=== PATIENT | male | born 1955 | race Caucasian/White ===

== ENCOUNTER → 2016-05-21 | Day surgery (SDC) | payer BC ==
[2016-05-19 10:28] VITALS: Ht 190.5 cm; Wt 94.4 kg
--- NOTE | 2016-05-19 11:05 | PAT Medication Instructions ---
Service Date May 19, 2016. Current Home Medication List Albuterol Sulfate (Proair Respiclick), 1-2 PUFFS INH Q4-6H Bupropion (Wellbutrin), 100 MG PO QAM Buspirone Hcl (Buspar), 15 MG PO BID Cyclosporine (Ophth) (Restasis), 1 DROP OP BID Simvastatin (Zocor), 10 MG PO QPM Trazodone Hcl (Trazodone), 100 MG PO HS Medication Instructions For Your Scheduled Surgery - Take the following medications the morning of surgery with a sip of water: Buspirone Hcl (Buspar), 15 MG PO BID Bupropion (Wellbutrin), 100 MG PO QAM Cyclosporine (Ophth) (Restasis), 1 DROP OP BID Albuterol Sulfate (Proair Respiclick), 1-2 PUFFS INH Q4-6H (bring with you to hospital morning of surgery) - Take the following medications as scheduled the night before surgery: Simvastatin (Zocor), 10 MG PO QPM Trazodone Hcl (Trazodone), 100 MG PO HS Buspirone Hcl (Buspar), 15 MG PO BID Cyclosporine (Ophth) (Restasis), 1 DROP OP BID If you have any questions please call us at [phone] (Le Child PA-C) or [phone] or [phone]
[2016-05-19 11:59] LABS: BASO % 0.3 %; BASO ABS # 0.02 K/uL (0-0.2); COMPLETE YES; EOS % 1.7 %; HEMATOCRIT 40.8 % (42-52); IG% 0.2 %; LYMPH ABS # 1.43 K/uL (1.2-3.4); MEAN CELL VOLUME 96.5 fL (80-100); MEAN CORPUSCULAR HEMOGLOBIN 32.2 pg (25-34); MEAN CORPUSCULAR HGB CONC 33.3 g/dl (32-36); MONO % 8.2 %; NEUT % 64.6 %; PLATELET COUNT 236 K/uL (130-400); RED BLOOD COUNT 4.23 M/uL (4.7-6.1); WHITE BLOOD COUNT 5.73 K/uL (4.8-10.8)
[2016-05-19 12:30] LABS: BUN/CREATININE RATIO 11.3 (10-20); CALCIUM 9.1 mg/dl (8.5-10.1); CREATININE 0.99 mg/dl (0.60-1.40); POTASSIUM 4.3 mmol/L (3.5-5.1)
[~2016-05-21] VITALS: Ht 190.5 cm; Wt 94.4 kg
[~2016-05-21] MED LIST: 500ML BSS 0.3ML EPI 1:1000PF IRRIG ONE; ACETAMINOPHEN 325 MG TAB PO PRN; ALBU18002 INH; AMVISC PLUS 0.8ML SYRINGE INT OCU ONE; ATROPINE SULFATE 0.1 MG/ML 5ML SYR IV PRN; BSS FLUSH ONE; BUPR-83 PO; BUSP15TA70 PO; CYCL0.052 OP; DEXAMETHASONE SOD INJ 4 MG/ML VIAL ONE; ENDOCOAT 0.85ML SYRINGE INT OCU ONE; EpHEDrine SULFATE INJ 50 MG/ML AMP IV PRN; EpINEphrine INJ 1MG/ML AMP 1 MG/ML AMP ONE; LACTATED RINGER'S 1000ML 500 ML IV SCH; LIDOCAINE 4% OP SOLN DROP CHARGE ONE; LIDOCAINE 4% OP SOLN DROP CHARGE OPR SCH; LIDOCAINE HCL 1% MPF 2 ML VIAL ONE; LIDOCAINE HCL 2% 2 ML VIAL (20MG/ML) ONE; MIDAZOLAM HCL 1 MG/ML 2ML VIAL ONE; MIX: 4ML BSS 1ML EPI 1:1000 PF INSTIL ONE; MOXIFLOXACIN OPH SOLN PER DROP CHARGE ONE; ONDANSETRON INJ 2 MG/ML 2 ML VIAL ONE; PATIENT'S ALLERGY INFO NEEDS ENTERED SCH; POVIDONE-IODINE OP SOLN 30 ML BTL ONE; PRED1SUS3 OPR; PROPARACAINE 0.5% OP SOLN PER DROP CHARGE OPR SCH; PROPOFOL IV EMULSION 10 MG/ML 20 ML VIAL IV ONE; SIMV10TA2 PO; TOBRAMYCIN/DEXAMETHASONE OPH OINT PER APPLN CHARGE ONE; TRAZ100T29 PO
[2016-05-21] MEDS: PHENYLEPHRINE HCL 2.5% OP SOLN PER DROP CHARGE OPR SCH ×3 (09:40→09:50)
[2016-05-21] MEDS: TROPICAMIDE 1% OP SOLN PER DROP CHARGE OPR SCH ×3 (09:41→09:51)
[2016-05-21] MEDS: CYCLOPENTOLATE HCL 1% OP SOLN PER DROP CHARGE OPR SCH ×3 (09:42→09:52)
[2016-05-21] MEDS: MOXIFLOXACIN OPH SOLN PER DROP CHARGE OPR SCH ×3 (09:43→09:53)
--- NOTE | 2016-05-21 10:10 | History & Physical Bridge - SC ---
H&P Re-Evaluation Bridge Note: I have examined the patient, reviewed the History & Physical and in the interval since the performance of the History & Physical I have noted the following changes of clinical significance: No changes noted
--- NOTE | 2016-05-21 11:29 | [facility] Post Operative Brief Note ---
Immediate Operative Summary Operative Date May 21, 2016. Pre-Operative Diagnosis Cataract Right Eye Post-Operative Diagnosis Same Procedure(s) Performed Right Cataract Phacoemulsification With Intraocular Lens Implant Surgeon Dr. Herrera Pusher Runner Surgeon(s) None Estimated Blood Loss 0 mL Findings right cataract Specimens None Complication(s) None Disposition
--- NOTE | 2016-05-21 11:31 | [facility] Operative Report ---
Operative Report Phaco with monofocal IOL DATE OF OPERATION: 05/21/16 PREOPERATIVE DIAGNOSIS: Senile nuclear cataract, right eye POSTOPERATIVE DIAGNOSIS: Senile nuclear cataract, right eye PROCEDURE PERFORMED: Phacoemulsification with intraocular lens implantation, right eye SURGEON: Dr. Jeremy Herrera ANESTHESIA: Laryngeal mask airway COMPLICATIONS: None DESCRIPTION OF PROCEDURE: After positively identifying the patient both verbally and by wristband in the preoperative area, the right eye was marked as the operative eye. The patient was then brought back to the operating room by the anesthesia and nursing staff where they were given a drop of Lidocaine and betadine into the operative eye. They were then sterilely prepped and draped in the standard fashion typical for ophthalmic surgery. Steri-strips were placed along the upper eyelids to keep the lashes back, and a lid speculum was placed into the operative eye. At this point, a documented time out was performed with members of the ophthalmology, nursing, and anesthesia staffs all agreeing upon the correct patient, correct location for surgery, correct procedure, and correct type and power of intraocular lens to be implanted. The microscope was then swung into position. First, a paracentesis wound was made using a sideport blade. Then, in sequence, 1% preservative-free lidocaine followed by Endocoat viscoelastic was injected into the anterior chamber. Next , the main incision was made with a keratome blade in triplanar fashion. A sharp cystotome was introduced into the eye and used to create a tear in the anterior capsule, which was directed into a continuous curvilinear capsulorrhexis using Utrata forceps. Hydrodissection was then performed with BSS on a flat-tip cannula. Next, the phacoemulsification handpiece was introduced into the eye and used to remove the nucleus in a [id number] fashion. This was done without complication and then the irrigation-aspiration handpiece was introduced into the eye and used to remove all remaining cortical and epinuclear material. Amvisc was then injected into the anterior chamber as well as into the capsular bag and using the lens injector system, an MX60 16.0 D lens, serial number [id number], and expiration date 10/2018 was injected into the capsular bag and rotated into the correct position. Next, the irrigation- aspiration handpiece was used to remove all remaining Amvisc. BSS was used to hydrate the main wound, and then BSS was injected into the paracentesis site to reach physiologic pressure and then the main wound was checked and found to be watertight. The patient was given drops of Vigamox and Tobradex ointment into the operative eye, and then the surrounding area was cleaned and dried. A clear plastic shield was placed over the eye and the patient was then sat up and taken from the operating room by the anesthesia staff having tolerated the procedure well and suffering no complications. DISPOSITION: The patient was returned to the recovery room in stable condition. I attest to the content of the Intraoperative Record and any orders documented therein. Any exceptions are noted below.
--- NOTE | 2016-05-21 11:32 | Discharge Instructions-SurgCtr ---
Discharge Instructions Visit Reason for Visit: Cataract Right Eye Discharge Discharge Diagnosis / Problem: right cataract Discharge Goals Goal(s): Decrease discomfort, Improve function Activity Recommendations Activity Limitations: as noted below Anesthesia . Post Anesthesia Instructions: If you have had General Anesthesia or IV Sedation: * Do not drive today. * Resume driving when surgeon permits. * Do not make important decisions or sign legal documents today. * Call surgeon for: 1. Temperature elevations greater than 101 degrees F. 2. Uncontrollable pain. 3. Excessive bleeding. 4. Persistent nausea and vomiting. 5. Medication intolerance (nausea, vomiting or rash). * For nausea and vomiting use only clear liquids such as: tea, soda, bouillon until nausea subsides, then gradually increase diet as tolerated. * If you have any concerns or questions, call your surgeon's office. If physician is unavailable and it is an emergency, call 911 or go to the nearest emergency room. . Instructions / Follow-Up Instructions / Follow-Up ACTIVITY RECOMMENDATIONS: * Light activities. * You may walk outside, read, watch television. * You may notice redness on the white part of the eye and some blurry vision - this is normal. MEDICATIONS: Resume previous medications unless instructed otherwise by your surgeon. Start all eye drops at 1:30 pm today: * Eye drops (today): Prednisone - one drop in operative eye every 2 hours while awake Ofloxacin - one drop in operative eye every 2 hours while awake SPECIAL CARE INSTRUCTIONS: * Tape plastic shield over eye to sleep at night. Call your doctor at with any concerns or problems. FOLLOW UP VISIT: Follow-up with Dr Herrera at [facility] as scheduled. Diet Recommendations Home Diet: no limitations Procedures Procedures Performed: Right Cataract Phacoemulsification With Intraocular Lens Implant Pending Studies Studies pending at discharge: no Medical Emergencies . Who to Call and When: Medical Emergencies: If at any time you feel your situation is an emergency, please call 911 immediately. . Non-Emergent Contact Non-Emergency issues call your: Surgeon . . "Provider Documentation" section prepared by Jeremy Herrera.
--- NOTE | 2016-05-21 11:57 | Anesthesia Progress Nt - [facility] ---
Anesthesia Post Op Note Date & Time May 21, 2016 at 11:57 Vital Signs Pain Intensity: 0 Vital Signs Past 12 Hours Date Time Temp Pulse Resp B/P Pulse Ox O2 Delivery O2 Flow Rate FiO2 05/21/16 11:39 36.0 53 14 128/92 100 Diffusion Mask 6 05/21/16 09:34 36.4 57 18 131/84 97 Room Air Notes Mental Status: alert / awake / arousable, participated in evaluation Pt Amnestic to Procedure: Yes Nausea / Vomiting: adequately controlled Pain: adequately controlled Airway Patency, RR, SpO2: stable & adequate BP & HR: stable & adequate Hydration State: stable & adequate Anesthetic Complications: no major complications apparent
[2016-05-21 12:13] VITALS: TEMP 36.4
[2016-05-21 12:27] VITALS: BP 136/90; PULSE 58; O2SAT 97
== END | disposition home or self-care (01) ==
LOC: X.SURG 09:16
PROVIDERS: ATTEND Ophthalmology
DX: H25.11 Age-related nuclear cataract, right eye (principal); H04.129 Dry eye syndrome of unspecified lacrimal gland; H25.049 Posterior subcapsular polar age-related cataract, unspecified eye; H02.13 Senile ectropion of eyelid; H01.009 Unspecified blepharitis unspecified eye, unspecified eyelid

== ENCOUNTER → 2016-05-30 | Outpatient (CLI) | payer BC ==
[~2016-05-30] MED LIST changes: -500ML BSS 0.3ML EPI 1:1000PF IRRIG ONE; -ACETAMINOPHEN 325 MG TAB PO PRN; -AMVISC PLUS 0.8ML SYRINGE INT OCU ONE; -ATROPINE SULFATE 0.1 MG/ML 5ML SYR IV PRN; -BSS FLUSH ONE; -DEXAMETHASONE SOD INJ 4 MG/ML VIAL ONE; -ENDOCOAT 0.85ML SYRINGE INT OCU ONE; -EpHEDrine SULFATE INJ 50 MG/ML AMP IV PRN; -EpINEphrine INJ 1MG/ML AMP 1 MG/ML AMP ONE; -LACTATED RINGER'S 1000ML 500 ML IV SCH; -LIDOCAINE 4% OP SOLN DROP CHARGE ONE; -LIDOCAINE 4% OP SOLN DROP CHARGE OPR SCH; -LIDOCAINE HCL 1% MPF 2 ML VIAL ONE; -LIDOCAINE HCL 2% 2 ML VIAL (20MG/ML) ONE; -MIDAZOLAM HCL 1 MG/ML 2ML VIAL ONE; -MIX: 4ML BSS 1ML EPI 1:1000 PF INSTIL ONE; -MOXIFLOXACIN OPH SOLN PER DROP CHARGE ONE; -ONDANSETRON INJ 2 MG/ML 2 ML VIAL ONE; -PATIENT'S ALLERGY INFO NEEDS ENTERED SCH; -POVIDONE-IODINE OP SOLN 30 ML BTL ONE; -PROPARACAINE 0.5% OP SOLN PER DROP CHARGE OPR SCH; -PROPOFOL IV EMULSION 10 MG/ML 20 ML VIAL IV ONE; -TOBRAMYCIN/DEXAMETHASONE OPH OINT PER APPLN CHARGE ONE
== END | disposition home or self-care (01) ==
LOC: C.LABSPEC 12:50
PROVIDERS: ATTEND Internal Medicine
DX: Z12.11 Encounter for screening for malignant neoplasm of colon (principal)

== ENCOUNTER → 2016-06-04 | Day surgery (SDC) | payer BC ==
[2016-06-02 07:45] VITALS: Ht 190.5 cm; Wt 88.6 kg
[~2016-06-04] VITALS: Ht 190.5 cm; Wt 88.6 kg
[~2016-06-04] MED LIST changes: +500ML BSS 0.3ML EPI 1:1000PF IRRIG ONE; +ACETAMINOPHEN 325 MG TAB PO PRN; +AMVISC PLUS 0.8ML SYRINGE INT OCU ONE; +ATROPINE SULFATE 0.1 MG/ML 5ML SYR IV PRN; +BSS FLUSH ONE; +ENDOCOAT 0.85ML SYRINGE INT OCU ONE; +EpHEDrine SULFATE INJ 50 MG/ML AMP IV PRN; +EpHEDrine SULFATE INJ 50 MG/ML AMP ONE; +EpINEphrine INJ 1MG/ML AMP 1 MG/ML AMP ONE; +FENTANYL CITRATE INJ 50 MCG/1 ML 2 ML VIAL IV PRN; +FENTANYL CITRATE INJ 50 MCG/1 ML 2 ML VIAL ONE; +GLYCOPYRROLATE INJ 0.2 MG/ML VIAL ONE; +LABETALOL HCL IV 5 MG/ML 20ML ONE; +LACTATED RINGER'S 1000ML 500 ML IV SCH; +LIDOCAINE 4% OP SOLN DROP CHARGE ONE; +LIDOCAINE 4% OP SOLN DROP CHARGE OPL SCH; +LIDOCAINE HCL 1% MPF 2 ML VIAL ONE; +MIX: 4ML BSS 1ML EPI 1:1000 PF TOP ONE; +MOXIFLOXACIN OPH SOLN PER DROP CHARGE ONE; +ONDANSETRON INJ 2 MG/ML 2 ML VIAL IV PRN; +ONDANSETRON INJ 2 MG/ML 2 ML VIAL ONE; +POVIDONE-IODINE OP SOLN 30 ML BTL ONE; +PROPARACAINE 0.5% OP SOLN PER DROP CHARGE OPL SCH; +PROPOFOL IV EMULSION 10 MG/ML 20 ML VIAL IV ONE; +TOBRAMYCIN/DEXAMETHASONE OPH OINT PER APPLN CHARGE ONE
[2016-06-04] MEDS: PHENYLEPHRINE HCL 2.5% OP SOLN PER DROP CHARGE OPL SCH ×3 (08:52→09:02)
[2016-06-04] MEDS: TROPICAMIDE 1% OP SOLN PER DROP CHARGE OPL SCH ×3 (08:53→09:03)
[2016-06-04] MEDS: CYCLOPENTOLATE HCL 1% OP SOLN PER DROP CHARGE OPL SCH ×3 (08:54→09:04)
[2016-06-04] MEDS: MOXIFLOXACIN OPH SOLN PER DROP CHARGE OPL SCH ×3 (08:55→09:05)
--- NOTE | 2016-06-04 09:48 | [facility] Post Operative Brief Note ---
Immediate Operative Summary Operative Date Jun 04, 2016. Pre-Operative Diagnosis Cataract Left Eye Post-Operative Diagnosis Same Procedure(s) Performed Left Cataract Phacoemulsification With Intraocular Lens Implant Surgeon Dr. Herrera Senior Power Scheduler Surgeon(s) None Estimated Blood Loss None Findings left cataract Specimens None Complication(s) None Disposition Recovery Room / PACU
--- NOTE | 2016-06-04 09:49 | [facility] Operative Report ---
Operative Report Phaco with monofocal IOL DATE OF OPERATION: 06/04/16 PREOPERATIVE DIAGNOSIS: Senile nuclear cataract, left eye POSTOPERATIVE DIAGNOSIS: Senile nuclear cataract, left eye PROCEDURE PERFORMED: Phacoemulsification with intraocular lens implantation, left eye SURGEON: Dr. Jeremy Herrera ANESTHESIA: LMA general COMPLICATIONS: None DESCRIPTION OF PROCEDURE: After positively identifying the patient both verbally and by wristband in the preoperative area, the left eye was marked as the operative eye. The patient was then brought back to the operating room by the anesthesia and nursing staff where they were given a drop of lidocaine into the operative eye. LMA anesthesia was induced by the anesthesia staff. The patient was then sterilely prepped and draped in the standard fashion typical for ophthalmic surgery. Steri-strips were placed along the upper eyelids to keep the lashes back, and a lid speculum was placed into the operative eye. At this point, a documented time out was performed with members of the ophthalmology, nursing, and anesthesia staffs all agreeing upon the correct patient, correct location for surgery, correct procedure, and correct type and power of intraocular lens to be implanted. The microscope was then swung into position. First, a paracentesis wound was made using a sideport blade. Then, in sequence, 1% preservative-free lidocaine followed by Endocoat viscoelastic was injected into the anterior chamber. Next , the main incision was made with a keratome blade in triplanar fashion. A sharp cystotome was introduced into the eye and used to create a tear in the anterior capsule, which was directed into a continuous curvilinear capsulorrhexis using Utrata forceps. Hydrodissection was then performed with BSS on a flat-tip cannula. Next, the phacoemulsification handpiece was introduced into the eye and used to remove the nucleus in a [id number] fashion. This was done without complication and then the irrigation-aspiration handpiece was introduced into the eye and used to remove all remaining cortical and epinuclear material. Amvisc was then injected into the anterior chamber as well as into the capsular bag and using the lens injector system, an MX60 15.0 D lens, serial number [id number], and expiration date 03/2018 was injected into the capsular bag and rotated into the correct position. Next, the irrigation- aspiration handpiece was used to remove all remaining Amvisc. BSS was used to hydrate the main wound, and then BSS was injected into the paracentesis site to reach physiologic pressure and then the main wound was checked and found to be watertight. The patient was given drops of Vigamox and Tobradex ointment into the operative eye, and then the surrounding area was cleaned and dried. A clear plastic shield was placed over the eye and the patient was then sat up and taken from the operating room by the anesthesia staff having tolerated the procedure well and suffering no complications. DISPOSITION: The patient was returned to the recovery room in stable condition. I attest to the content of the Intraoperative Record and any orders documented therein. Any exceptions are noted below.
--- NOTE | 2016-06-04 09:50 | Discharge Instructions-SurgCtr ---
Discharge Instructions Visit Reason for Visit: Cataract Left Eye Discharge Discharge Diagnosis / Problem: left cataract Discharge Goals Goal(s): Decrease discomfort, Improve function Activity Recommendations Activity Limitations: as noted below Anesthesia . Post Anesthesia Instructions: If you have had General Anesthesia or IV Sedation: * Do not drive today. * Resume driving when surgeon permits. * Do not make important decisions or sign legal documents today. * Call surgeon for: 1. Temperature elevations greater than 101 degrees F. 2. Uncontrollable pain. 3. Excessive bleeding. 4. Persistent nausea and vomiting. 5. Medication intolerance (nausea, vomiting or rash). * For nausea and vomiting use only clear liquids such as: tea, soda, bouillon until nausea subsides, then gradually increase diet as tolerated. * If you have any concerns or questions, call your surgeon's office. If physician is unavailable and it is an emergency, call 911 or go to the nearest emergency room. . Instructions / Follow-Up Instructions / Follow-Up ACTIVITY RECOMMENDATIONS: * Light activities. * You may walk outside, read, watch television. * You may notice redness on the white part of the eye and some blurry vision - this is normal. MEDICATIONS: Resume previous medications unless instructed otherwise by your surgeon. Start all eye drops at 12 pm today: * Eye drops (today): Prednisone - one drop in operative eye every 2 hours while awake Ofloxacin - one drop in operative eye every 2 hours while awake SPECIAL CARE INSTRUCTIONS: * Tape plastic shield over eye to sleep at night. Call your doctor at with any concerns or problems. FOLLOW UP VISIT: Follow-up with Dr Herrera at [facility] as scheduled. Diet Recommendations Home Diet: no limitations Procedures Procedures Performed: Left Cataract Phacoemulsification With Intraocular Lens Implant Pending Studies Studies pending at discharge: no Medical Emergencies . Who to Call and When: Medical Emergencies: If at any time you feel your situation is an emergency, please call 911 immediately. . Non-Emergent Contact Non-Emergency issues call your: Surgeon . . "Provider Documentation" section prepared by Jeremy Herrera.
[2016-06-04] MEDS: LABETALOL HCL IV 5 MG/ML 20ML IV PRN ×2 (10:19→10:33)
[2016-06-04 10:49] VITALS: TEMP 37.1
--- NOTE | 2016-06-04 11:00 | Anesthesia Progress Nt - [facility] ---
Anesthesia Post Op Note Date & Time Jun 04, 2016 at 11:00 Vital Signs Pain Intensity: 0 Vital Signs Past 12 Hours Date Time Temp Pulse Resp B/P Pulse Ox O2 Delivery O2 Flow Rate FiO2 06/04/16 10:49 37.1 69 20 142/97 94 Room Air 06/04/16 10:38 159/101 06/04/16 10:37 57 14 06/04/16 10:37 57 14 166/106 99 06/04/16 10:33 158/103 06/04/16 10:32 59 10 06/04/16 10:32 59 10 93 06/04/16 10:28 163/105 06/04/16 10:27 61 7 95 06/04/16 10:27 60 7 06/04/16 10:23 153/104 06/04/16 10:22 58 6 169/108 96 06/04/16 10:22 59 6 06/04/16 10:21 36.6 58 20 164/106 96 Room Air 06/04/16 10:21 59 11 06/04/16 10:21 61 11 96 06/04/16 10:18 164/106 06/04/16 10:16 64 9 94 06/04/16 10:16 64 9 06/04/16 10:13 171/111 06/04/16 10:11 63 14 06/04/16 10:11 62 14 100 06/04/16 10:08 175/113 06/04/16 10:06 62 10 06/04/16 10:06 62 10 100 06/04/16 10:05 179/114 06/04/16 10:03 187/114 06/04/16 10:01 74 13 06/04/16 10:01 74 13 100 06/04/16 09:58 177/114 06/04/16 09:56 81 17 06/04/16 09:56 82 17 100 06/04/16 09:55 177/110 06/04/16 09:54 36.8 75 12 175/109 98 Mask 8 06/04/16 09:53 169/107 06/04/16 09:52 174/107 06/04/16 09:51 76 18 100 06/04/16 09:51 76 18 06/04/16 08:45 36.7 59 16 130/88 96 Room Air Notes Mental Status: alert / awake / arousable, participated in evaluation Pt Amnestic to Procedure: Yes Nausea / Vomiting: adequately controlled Pain: adequately controlled Airway Patency, RR, SpO2: stable & adequate BP & HR: stable & adequate Hydration State: stable & adequate Anesthetic Complications: no major complications apparent
[2016-06-04 11:10] VITALS: BP 134/83; PULSE 56; O2SAT 95
== END | disposition home or self-care (01) ==
LOC: X.SURG 08:18
PROVIDERS: ATTEND Ophthalmology
DX: H25.12 Age-related nuclear cataract, left eye (principal); Z96.1 Presence of intraocular lens

== ENCOUNTER 2023-06-22 07:50 | Observation (INO) ==
--- NOTE | 2023-06-22 08:41 | XRay Report ---
XR chest 1V not portable HISTORY: Chest pain, nonspecific COMPARISON: Chest 05/26/2023. FINDINGS: No pneumothorax. No pleural effusions. The heart is normal in size. Linear scarlike density within the left midlung zone is again noted. No new focal lung consolidations to suggest a pneumonia . No evidence for pulmonary edema. Tortuous versus ectatic ascending thoracic aorta. This has progres sed in the interval could represent an underlying ascending thoracic aortic aneurysm. IMPRESSION: 1. No focal lung consolidations to suggest a pneumonia. 2. Left midlung zone scarring persists. 3. Tortuous versus ectatic ascending thoracic aorta. This has progressed in the interval and could re present an underlying ascending thoracic aortic aneurysm. Therefore, follow-up nonemergent echocardio gram recommended for further evaluation. ACT 112: Negative or not required by law. Electronically signed by: Gary Richards M.D. 06/22/2023 8:40 AM
[2023-06-22] MEDS: ACETAMINOPHEN 500 MG TAB PO STA (08:46)
[2023-06-22 09:11] LABS: Basophils # (auto) 0.02 K/uL (0.00-0.20); Basophils % (auto) 0.4 %; Eosinophils # (auto) 0.01 K/uL (0.00-0.50); Eosinophils % (auto) 0.2 %; Hematocrit (blood only) 41.1 % (42.0-52.0); Hemoglobin 13.2 g/dl (14.0-18.0); Immature Granulocytes # (auto) 0.01 K/uL (0.01-0.20); Immature Granulocytes % (auto) 0.2 %; Lymphocytes % (auto) 3.7 %; Mean Corpuscular Hemoglobin 31.9 pg (25.0-34.0); Mean Corpuscular Hgb Conc 32.1 g/dL (32.0-36.0); Mean Corpuscular Volume 99.3 fL (80.0-100.0); Mean Platelet Volume 9.3 fL (9.4-12.4); Monocytes # (auto) 0.63 K/uL (0.11-0.59); Monocytes % (auto) 11.7 %; Neutrophils # (auto) 4.51 K/uL (1.40-6.50); Neutrophils % (auto) 83.8 %; Platelet Count 143 K/uL (130-400); RDW Coefficient of Variation 12.5 % (11.5-14.5); RDW Standard Deviation 45.9 fL (36.4-46.3); Red Blood Count 4.14 M/uL (4.70-6.10); White Blood Count 5.38 K/ul (4.8-10.8)
--- NOTE | 2023-06-22 09:12 | Emergency Department Note ---
History of Present Illness General Chief complaint: Respiratory Problems Stated complaint: TROUBLE BREATHING-DIAGNOSED W/ PNEUMONIA AT ME Time Seen by Provider: 06/22/23 08:53 Source: patient, family ( who is also at the bedside), RN notes reviewed and old records reviewed (05/26/23-primary care visit as an outpatient for pneumonia) Mode of arrival: ambulatory Limitations: no limitations History of Present Illness This patient is 68-year-old male who tells me he has had pneumonia twice in the last 6 weeks. He most recently started feeling sick on Thursday with wheezing shortness of breath and a nonproductive cough he has body aches. He had a fever. Was seen at [facility] yesterday had a chest x-ray and was COVID tested as well as flu tested negative. He was started on Augmentin and given inhaler and some cough medications his symptoms have gotten worse he had a rough night he could not sleep he was coughing all night and he could lay flat. Denies chest pain .he had body aches and a mild headache. No sore throat. no urinary symptoms. no nausea vomiting or diarrhea. no chest pain. no rash. No sick contacts. He does have a history of asthma he tells me since a child uses albuterol inhaler occasionally for this. He does not have a nebulizer at home. Home Medications Medication Instructions Recorded Confirmed Type trazodone 50 mg tablet 100 mg PO HS PRN Insomnia 01/16/19 06/22/23 History albuterol sulfate 90 mcg/actuation 2 puff inhalation Q4H PRN 02/04/23 06/22/23 Rx aerosol inhaler shortness of breath or wheezing #8.5 grams atorvastatin 20 mg tablet 20 mg PO DAILY #90 tabs 05/24/23 06/22/23 Rx benzonatate 200 mg capsule 200 mg PO TID PRN cough #30 caps 05/26/23 06/22/23 Rx bupropion HCl 200 mg tablet,12 hr 200 mg PO QAM 06/22/23 06/22/23 History sustained-release buspirone 30 mg tablet 30 mg PO QAM 06/22/23 06/22/23 History cholecalciferol (vitamin D3) 1,250 0 unit PO WK 06/22/23 06/22/23 History mcg (50,000 unit) capsule cholecalciferol (vitamin D3) 50 0 mcg PO DAILY 06/22/23 06/22/23 History mcg (2,000 unit) capsule mecobalamin (vitamin B12) 1,000 0 mcg PO DAILY 06/22/23 06/22/23 History mcg chewable tablet guaifenesin 600 mg tablet, 600 mg PO Q12 5 days #10 tabs 06/23/23 Rx extended release 12 hr (Mucinex) oseltamivir 75 mg capsule (Tamiflu) 75 mg PO BID 4 days #8 caps 06/23/23 Rx Allergies Allergy/AdvReac Type Severity Reaction Status Date / Time cat dander Allergy Mild EYES Verified 04/28/22 10:29 RED,WHEEZING No Known Drug Allergies Allergy Unknown NONE Verified 04/28/22 10:29 Past Med/Surg History Medical History (Updated 06/24/23 @ 10:39 by Kevyn Stubbs MD) Thoracic ascending aortic aneurysm COVID Anxiety Asthma childhood; inhaler prn Vocal cord polyp hoarseness Surgical History History of colonoscopy History of right inguinal hernia repair History of tooth extraction History of bilateral cataract extraction S/P Achilles tendon repair right Family History Father Allergic rhinitis Asthma Family/Other Allergic rhinitis Mother Cervical cancer Other No family history of adverse response to anesthesia Denies family history of Ovarian cancer Prostate cancer Myocardial infarction Breast cancer Lung cancer Colorectal cancer Stroke Social History Smoking Status: Never smoker Second Hand Exposure: Yes (father smoked); Do You Dip or Chew Tobacco: No; Hx Alcohol Use: Yes Alcohol type: wine Alcohol Intake Frequency: 4 or More x per/Week Hx Substance Use: No Preferred Language: [place] Communication Ability: Effective Visual Impairment: No Limitations Hearing Ability: Normal Business Process Manager Required: No Beliefs That Will Affect Care: None marital status: Current Living Situation: Spouse current occupational status: employed Feels Safe at Home: No Is there a partner from a previous relationship who is making you feel unsafe now?: No Diet: regular Dental Care, Regularly: Yes Physical Activity Frequency: Daily Physical Activity Frequency Comment: lifting weight 3 times a week, Walking everyday 1-2 mile a day Seatbelt Use: always Sunscreen Use: No Assistive Devices: Glasses Review of Systems A total of 10 systems reviewed and were otherwise negative Physical Exam Vital Signs Vital Signs - 24 hr 06/22/23 07:57 Temperature 38.4 C H Temperature Source Temporal Artery Scan Pulse Rate 84 Respiratory Rate 18 Respiratory Effort / Characteristics Non-Labored Respiratory Depth Normal Respiratory Pattern Regular Blood Pressure 150/91 H Blood Pressure Mean 110 Pulse Oximetry 92 Oxygen Delivery Method Room Air Sepsis Recent Fever Within 48 Hours No Sepsis New/Unexplained Change in Mental Status N/A Sepsis Action Taken by Nursing No Action Required General: Well developed well nourished older male who in no acute distress, breathing comfortably on room air. Normal speech HEENT: Normal cephalic atraumatic. Pupils are equal round and reactive to light. Extraocular movements are intact. Oropharynx is pink with moist mucous membranes. No swelling of the mouth lips or tongue. Neck: Supple with a midline trachea. No meningeal signs or stiffness, no JVD or bruits. No Stridor. Chest: Clear to auscultation bilaterally. No wheezes or rhonchi. No increased work of breathing. Heart: Regular rate and rhythm without murmurs or gallops. Abdomen: Soft nontender, nondistended without rebound guarding or rigidity. Extremities: No cyanosis clubbing or edema. No calf tenderness or assymetry Spine/Back. Non tender to palpation. No CVA tenderness Skin: Good turgor without rashes. Neurologic exam: Cranial nerves two through 12 are intact. Motor and sensation are intact and symmetrical throughout. Course Administered Medications Discontinued Medications Acetaminophen (Acetaminophen 500 Mg Tab) 1,000 mg PO NOW STA Stop: 06/22/23 08:18 Last Admin: 06/22/23 08:46 Dose: 1,000 mg Documented By: LOUISA Acetaminophen (Acetaminophen 325 Mg Tab) 650 mg PO Q4H PRN PRN Reason: Pain or Fever Stop: 07/22/23 14:58 Last Admin: 06/22/23 17:45 Dose: 650 mg Documented By: ALEJANDRA Albuterol (Albut/Ipratrop 3mg/0.5mg Neb 3 Ml Vial) 3 ml NEB NOW STA; Protocol Stop: 06/22/23 09:44 Last Admin: 06/22/23 09:59 Dose: 3 ml Documented By: AILEEN Atorvastatin Calcium (Atorvastatin 20 Mg Tab) 20 mg PO DAILY [facility] Stop: 07/23/23 08:59 Last Admin: 06/23/23 09:51 Dose: 20 mg Documented By: ASIA Bupropion HCl (Bupropion Sr 100 Mg Tabcr) [facility] [place]: 07/22/23 15:14 Last Admin: 06/23/23 09:51 Dose: 200 mg Documented By: Admin: 06/22/23 17:43 Dose: 200 mg Documented By: ALEJANDRA Buspirone HCl (Buspirone 15 Mg Tab) [facility] [place] Stop: 07/22/23 15:14 Last Admin: 06/23/23 09:51 Dose: 30 mg Documented By: Admin: 06/22/23 17:43 Dose: 30 mg Documented By: ALEJANDRA Enoxaparin Sodium (Enoxaparin Inj 40 Mg/0.4 Ml Syr) 40 mg SQ Q24H [facility] Stop: 07/22/23 19:59 Last Admin: 06/22/23 19:51 Dose: Not Given Documented By: DOROTHY Guaifenesin (Guaifenesin 600 Mg Tabcr) 600 mg PO Q12 [facility] Stop: 07/22/23 20:59 Last Admin: 06/23/23 11:33 Dose: 600 mg Documented By: Admin: 06/22/23 20:52 Dose: 600 mg Documented By: DOROTHY Magnesium Sulfate/Dextrose (Magnesium Sulfate / D5w) 1 gm in 100 mls @ 50 mls/hr IV Q2H [facility] Stop: 06/22/23 20:44 Last Infusion: 06/22/23 22:06 Dose: Infused Documented By: Admin: 06/22/23 19:49 Dose: 50 mls/hr Documented By: Infusion: 06/22/23 19:49 Dose: Infused Documented By: Admin: 06/22/23 17:48 Dose: 50 mls/hr Documented By: ALEJANDRA Ioversol (Optiray 320 125ml) 77 ml IV ONCE ONE Stop: 06/22/23 10:57 Last Admin: 06/22/23 10:56 Dose: 77 ml Documented By: CARSON Oseltamivir Phosphate (Oseltamivir Phosphate 75 Mg Cap) 75 mg PO NOW STA; Protocol Stop: 06/22/23 11:55 Last Admin: 06/22/23 12:20 Dose: 75 mg Documented By: AILEEN Oseltamivir Phosphate (Oseltamivir Phosphate 75 Mg Cap) 75 mg PO BID REID; Protocol Stop: 06/28/23 08:59 Last Admin: 06/23/23 09:51 Dose: 75 mg Documented By: ASIA Trazodone HCl (Trazodone Hcl 100 Mg Tab) 100 mg PO HS PRN PRN Reason: Insomnia Stop: 07/22/23 20:59 Last Admin: 06/22/23 20:53 Dose: 100 mg Documented By: DOROTHY Medical Decision Making Differential Diagnosis Pneumonia, sepsis, bronchitis, influenza, URI, cardiac disease, aortic pathology, electrolyte or metabolic abnormality Medical Records Attestation: I reviewed the patient's medical records. Home Medications Current Medication List: was personally reviewed by me Laboratory Data Attestation: I reviewed the patient's lab results. 06/23/23 05:53 06/23/23 05:53 Lab Results 06/22/23 06/22/23 06/22/23 Range/Units 08:49 09:30 10:09 WBC 5.38 (4.8-10.8) K/ul RBC 4.14 L (4.70-6.10) M/uL Hgb 13.2 L (14.0-18.0) g/dl Hct 41.1 L (42.0-52.0) % MCV 99.3 (80.0-100.0) fL MCH 31.9 (25.0-34.0) pg MCHC 32.1 (32.0-36.0) g/dL RDW Std Deviation 45.9 (36.4-46.3) fL RDW Coeff of Keven 12.5 (11.5-14.5) % Plt Count 143 (130-400) K/uL MPV 9.3 L (9.4-12.4) fL Immature Gran % (Auto) 0.2 % Neut % (Auto) 83.8 % Lymph % (Auto) 3.7 % Alfalfa % (Auto) 11.7 % Eos % (Auto) 0.2 % Baso % (Auto) 0.4 % Neut # (Auto) 4.51 (1.40-6.50) K/uL Lymph # (Auto) 0.20 L (1.20-3.40) K/uL Alfalfa # (Auto) 0.63 H (0.11-0.59) K/uL Eos # (Auto) 0.01 (0.00-0.50) K/uL Baso # (Auto) 0.02 (0.00-0.20) K/uL Immature Gran # (Auto) 0.01 (0.01-0.20) K/uL PT 10.4 (9.0-12.0) Seconds INR 0.9 (0.9-1.1) APTT 27 (21-31) Seconds PTT Ratio 1.0 Sodium 135 L (136-145) mmol/L Potassium 3.8 (3.5-5.1) mmol/L Chloride 100 (98-107) mmol/L Carbon Dioxide 29 (21-32) mmol/L Anion Gap 6 (3-11) BUN 9 (6-23) mg/dl Creatinine 1.14 (0.6-1.4) mg/dl Est Cr Clr Drug Dosing 73.1 ml/min Est GFR ( Amer) 75.6 ml/min Est GFR (Non-Af Amer) 65.3 ml/min BUN/Creatinine Ratio 7.9 L (10-20) Glucose 125 H (70-99(Fasting)) mg/dl Lactate 1.0 (0.4-2.0) mmol/L Calcium 8.8 (8.6-10.3) mg/dl Magnesium (1.7-2.4) mg/dl Total Bilirubin 0.5 (0.2-1.0) mg/dl AST 17 (13-39) U/L ALT 15 (7-52) U/L Alkaline Phosphatase 47 (34-104) U/L Troponin I High Sens 12.5 (0-20) pg/ml Total Protein 6.7 (6.0-8.3) gm/dl Albumin 4.2 (3.4-5.0) gm/dl Globulin 2.5 (2.5-4.0) gm/dl Albumin/Globulin Ratio 1.7 (0.9-2) Procalcitonin 0.03 (0-0.5) ng/ml Nasal Influ A H1 2008 PCR DETECTED A (NotDetected) Adenovirus (PCR) Not Detected (NotDetected) B. pertussis DNA (PCR) Not Detected (NotDetected) B.parapertussis DNA PCR Not Detected (NotDetected) C. pneumoniae DNA (PCR) Not Detected (NotDetected) Coronavirus OC43 (PCR) Not Detected (NotDetected) Coronavirus HKU1 (PCR) Not Detected (NotDetected) Coronavirus 229E (PCR) Not Detected (NotDetected) SARS-CoV-2 (PCR) Not Detected (NotDetected) Coronavirus NL63 (PCR) Not Detected (NotDetected) Human Metapneumovir PCR Not Detected (NotDetected) Influenza Type B (PCR) Not Detected (NotDetected) M. pneumoniae (PCR) Not Detected (NotDetected) Parainfluenza 1 (PCR) Not Detected (NotDetected) Parainfluenza 2 (PCR) Not Detected (NotDetected) Parainfluenza 3 (PCR) Not Detected (NotDetected) Parainfluenza 4 (PCR) Not Detected (NotDetected) RSV (PCR) Not Detected (NotDetected) Entero/Rhino (PCR) Not Detected (NotDetected) 06/22/23 Range/Units 10:25 WBC (4.8-10.8) K/ul RBC (4.70-6.10) M/uL Hgb (14.0-18.0) g/dl Hct (42.0-52.0) % MCV (80.0-100.0) fL MCH (25.0-34.0) pg MCHC (32.0-36.0) g/dL RDW Std Deviation (36.4-46.3) fL RDW Coeff of Keven (11.5-14.5) % Plt Count (130-400) K/uL MPV (9.4-12.4) fL Immature Gran % (Auto) % Neut % (Auto) % Lymph % (Auto) % Alfalfa % (Auto) % Eos % (Auto) % Baso % (Auto) % Neut # (Auto) (1.40-6.50) K/uL Lymph # (Auto) (1.20-3.40) K/uL Alfalfa # (Auto) (0.11-0.59) K/uL Eos # (Auto) (0.00-0.50) K/uL Baso # (Auto) (0.00-0.20) K/uL Immature Gran # (Auto) (0.01-0.20) K/uL PT (9.0-12.0) Seconds INR (0.9-1.1) APTT (21-31) Seconds PTT Ratio Sodium (136-145) mmol/L Potassium (3.5-5.1) mmol/L Chloride (98-107) mmol/L Carbon Dioxide (21-32) mmol/L Anion Gap (3-11) BUN (6-23) mg/dl Creatinine (0.6-1.4) mg/dl Est Cr Clr Drug Dosing ml/min Est GFR ( Amer) ml/min Est GFR (Non-Af Amer) ml/min BUN/Creatinine Ratio (10-20) Glucose (70-99(Fasting)) mg/dl Lactate (0.4-2.0) mmol/L Calcium (8.6-10.3) mg/dl Magnesium 1.6 L (1.7-2.4) mg/dl Total Bilirubin (0.2-1.0) mg/dl AST (13-39) U/L ALT (7-52) U/L Alkaline Phosphatase (34-104) U/L Troponin I High Sens (0-20) pg/ml Total Protein (6.0-8.3) gm/dl Albumin (3.4-5.0) gm/dl Globulin (2.5-4.0) gm/dl Albumin/Globulin Ratio (0.9-2) Procalcitonin (0-0.5) ng/ml Nasal Influ A H1 2008 PCR (NotDetected) Adenovirus (PCR) (NotDetected) B. pertussis DNA (PCR) (NotDetected) B.parapertussis DNA PCR (NotDetected) C. pneumoniae DNA (PCR) (NotDetected) Coronavirus OC43 (PCR) (NotDetected) Coronavirus HKU1 (PCR) (NotDetected) Coronavirus 229E (PCR) (NotDetected) SARS-CoV-2 (PCR) (NotDetected) Coronavirus NL63 (PCR) (NotDetected) Human Metapneumovir PCR (NotDetected) Influenza Type B (PCR) (NotDetected) M. pneumoniae (PCR) (NotDetected) Parainfluenza 1 (PCR) (NotDetected) Parainfluenza 2 (PCR) (NotDetected) Parainfluenza 3 (PCR) (NotDetected) Parainfluenza 4 (PCR) (NotDetected) RSV (PCR) (NotDetected) Entero/Rhino (PCR) (NotDetected) Imaging Data Attestation: I personally reviewed and interpreted this imaging study as follows: My Impression: Chest x-rayno acute infiltrate, failure, pneumothorax seen CT angiographyno evidence of PE. There is a thoracic aneurysm without dissection Radiologist's Impression: Chest X-Ray 06/22/23 08:01 XR chest 1V not portable HISTORY: Chest pain, nonspecific COMPARISON: Chest 05/26/2023. FINDINGS: No pneumothorax. No pleural effusions. The heart is normal in size. Linear scarlike density within the left midlung zone is again noted. No new focal lung consolidations to suggest a pneumonia. No evidence for pulmonary edema. Tortuous versus ectatic ascending thoracic aorta. This has progressed in the interval could represent an underlying ascending thoracic aortic aneurysm. IMPRESSION: 1. No focal lung consolidations to suggest a pneumonia. 2. Left midlung zone scarring persists. 3. Tortuous versus ectatic ascending thoracic aorta. This has progressed in the interval and could represent an underlying ascending thoracic aortic aneurysm. Therefore, follow-up nonemergent echocardiogram recommended for further evaluation. ACT 112: Negative or not required by law. Electronically signed by: Gary Richards M.D. 06/22/2023 8:40 AM Chest X-Ray 06/22/23 08:01 XR chest 1V not portable HISTORY: Chest pain, nonspecific COMPARISON: Chest 05/26/2023. FINDINGS: No pneumothorax. No pleural effusions. The heart is normal in size. Linear scarlike density within the left midlung zone is again noted. No new focal lung consolidations to suggest a pneumonia. No evidence for pulmonary edema. Tortuous versus ectatic ascending thoracic aorta. This has progressed in the interval could represent an underlying ascending thoracic aortic aneurysm. IMPRESSION: 1. No focal lung consolidations to suggest a pneumonia. 2. Left midlung zone scarring persists. 3. Tortuous versus ectatic ascending thoracic aorta. This has progressed in the interval and could represent an underlying ascending thoracic aortic aneurysm. Therefore, follow-up nonemergent echocardiogram recommended for further evaluation. ACT 112: Negative or not required by law. Electronically signed by: Gary Richards M.D. 06/22/2023 8:40 AM Chest CTA 06/22/23 10:04 CHEST CTA for PULMONARY ARTERIES CT DOSE: 742.13 mGy.cm HISTORY: Shortness of breath. Atypical chest pain. TECHNIQUE: Multiaxial CT images of the chest were performed following the intravenous administration of contrast to evaluate the pulmonary arteries. 3D/Maximal intensity projection images were also obtained. Sagittal and coronal reformations were also reviewed. A dose lowering technique was utilized adhering to the principles of ALARA. COMPARISON STUDY: None. FINDINGS: There is confirmation of a 4.8 cm ascending thoracic aortic aneurysm. No evidence for an aortic dissection. The heart is normal in size. No pleural or pericardial effusions. No filling defects within the pulmonary arteries to suggest a pulmonary embolus. Limited views of the upper abdomen demonstrate a normal liver, spleen, and adrenal glands. The thyroid gland enhances normally. There is a tiny hiatus hernia. Otherwise, normal esophagus. No mediastinal or hilar lymphadenopathy. No acute fractures. No pneumothorax. There is mild central bronchial wall thickening. Linear scarlike density noted within the lingula. Otherwise, no focal lung consolidations to suggest a pneumonia. No evidence for pulmonary edema. Calcified granuloma within the right upper lobe. Right basilar linear density favors subsegmental atelectasis or scarring. Focal opacified distal bronchus within the superior segment of the right lower lobe medially best seen on image 119. This is age indeterminate but likely chronic. IMPRESSION: 1. No evidence for a pulmonary embolus. 2. A 4.8 cm ascending thoracic aortic aneurysm. No evidence for an aortic dissection. 3. No focal lung consolidations to suggest a pneumonia. 4. Focal opacified distal bronchus within the superior segment of the right lower lobe. This is age indeterminate but likely chronic. ACT 112: Negative or not required by law. Electronically signed by: Gary Richards M.D. 06/22/2023 11:30 AM ECG Data Attestation: I personally reviewed and interpreted this ECG as follows: Indication: + SOB/dyspnea Rate (beats per minute): 81 Rhythm: + normal sinus and + other (Poor baseline/artifact) ECG Intervals/blocks: + Normal QRS, + Normal QT and + Normal UT ECG Mclean: + Normal ECG ST segments: + Normal ST segments ECG Findings: + Poor R wave progression Comparison ECG Date: from (05/19/2016) Change: the following changes noted (Rate has increased otherwise no change) MDM Narrative This patient is 68-year-old male comes in after feeling sick for couple days he has had a cough he does have a history of asthma he tells me. On exam his O2 sats are 92% he is febrile. He was given Tylenol in triage. He does not appear to be in any distress. IV access established . I did a full sepsis type workup on him given his temperature. Chest x-ray does not show any congestive heart failure, pneumonia, pneumothorax. EKG shows no ischemic changes he has no chest pain or back pain. He was placed on a monitoring tech in room B11 his O2 sat are dipping down into the high 80s. He was placed on supplemental oxygen. He was also given a DuoNeb although he is not wheezing. He is white count is low possibly consistent with a viral illness. He has no significant acrylate or metabolic abnormality. EKG does not suggest ischemia and his troponin is normal and I do not think is likely cardiac. I also did order a CT angiography of the chest given his hypoxemia and there is no evidence of PE. He does have a 4.6 cm thoracic aneurysm without dissection this is not causing his symptoms acutely but will need outpatient follow-up. His bio fire was negative for COVID was positive for influenza A he was given Tamiflu. I do think he needs to be admitted/observed given his hypoxemia. I have consulted the [facility] hospitalist to see him in ER for these measures. Continuous cardiac monitoring: Orders placed in EMR for continuous monitoring tech call upon my evaluation patient was noted to be normal sinus rhythm with a rate of 70 Impression & Plan Hypoxemia, SOB (shortness of breath), Cough, Influenza A, Lab test negative for COVID-19 virus, Aneurysm of thoracic aorta Discharge Plan Visit Data Chief Complaint: Respiratory Problems Stated Complaint: TROUBLE BREATHING-DIAGNOSED W/ PNEUMONIA AT [facility] ED Provider: Kevyn Stubbs Discharge Problem: Hypoxemia, SOB (shortness of breath), Cough, Influenza A, Lab test negative for COVID-19 virus, Aneurysm of thoracic aorta Patient Disposition: Admitted As Inpatient Discharge Instructions Interventions: ED Discharge Assessment Last Done: 06/22/23 15:00 Discharge Problem: Cough Qualifiers: Cough type: acute Qualified Code(s): R05.1 - Acute cough Aneurysm of thoracic aorta Qualifiers: Thoracic aorta location: ascending aorta Presence of rupture: without rupture Q ualified Code(s): I71.21 - Aneurysm of the ascending aorta, without rupture
[2023-06-22 09:34] LABS: INR 0.9 (0.9-1.1); Partial Thromboplastin Time 27 Seconds (21-31); Prothrombin Time 10.4 Seconds (9.0-12.0)
[2023-06-22 09:54] LABS: Albumin Globulin Ratio 1.7 (0.9-2); Albumin Level 4.2 gm/dl (3.4-5.0); BUN Creatinine Ratio 7.9 (10-20); Bilirubin,Total 0.5 mg/dl (0.2-1.0); Calcium 8.8 mg/dl (8.6-10.3); Creatinine Clr Calc Pharmacy 73.1 ml/min; Est GFR (African American) 75.6 ml/min; Est GFR (Non-African American) 65.3 ml/min; Globulin 2.5 gm/dl (2.5-4.0); Potassium 3.8 mmol/L (3.5-5.1); Total Protein 6.7 gm/dl (6.0-8.3)
[2023-06-22 09:58] LABS: Troponin I High Sensitivity 12.5 pg/ml (0-20)
[2023-06-22] MEDS: ALBUT/IPRATROP 3MG/0.5MG NEB 3 ML VIAL NEB STA (09:59)
[2023-06-22 10:27] LABS: Adenovirus PCR Not Detected (NotDetected); Bordetella parapertussis PCR Not Detected (NotDetected); Bordetella pertussis PCR Not Detected (NotDetected); Chlamydia pneumoniae PCR Not Detected (NotDetected); Coronavirus 229E PCR Not Detected (NotDetected); Coronavirus CoV-2 (COVID19)PCR Not Detected (NotDetected); Coronavirus HKU1 PCR Not Detected (NotDetected); Coronavirus NL63 PCR Not Detected (NotDetected); Coronavirus OC43PCR Not Detected (NotDetected); Human Metapneumovirus PCR Not Detected (NotDetected); Influenza A (H1 2009) PCR DETECTED (NotDetected); Influenza B PCR Not Detected (NotDetected); Mycoplasma pneumoniae PCR Not Detected (NotDetected); Parainfluenza Virus 1 PCR Not Detected (NotDetected); Parainfluenza Virus 2 PCR Not Detected (NotDetected); Parainfluenza Virus 3 PCR Not Detected (NotDetected); Parainfluenza Virus 4 PCR Not Detected (NotDetected); Respiratory Syncytial VirusPCR Not Detected (NotDetected); Rhinovirus/Enterovirus PCR Not Detected (NotDetected)
[2023-06-22] MEDS: OPTIRAY 320 125ml IV ONE (10:56)
--- NOTE | 2023-06-22 11:31 | CT Scan Report ---
CHEST CTA for PULMONARY ARTERIES CT DOSE: 742.13 mGy.cm HISTORY: Shortness of breath. Atypical chest pain. TECHNIQUE: Multiaxial CT images of the chest were performed following the intravenous administration of contrast to evaluate the pulmonary arteries. 3D/Maximal intensity projection images were also obta ined. Sagittal and coronal reformations were also reviewed. A dose lowering technique was utilized a dhering to the principles of ALARA. COMPARISON STUDY: None. FINDINGS: There is confirmation of a 4.8 cm ascending thoracic aortic aneurysm. No evidence for an ao rtic dissection. The heart is normal in size. No pleural or pericardial effusions. No filling defects within the pulmonary arteries to suggest a pulmonary embolus. Limited views of the upper abdomen dem onstrate a normal liver, spleen, and adrenal glands. The thyroid gland enhances normally. There is a tiny hiatus hernia. Otherwise, normal esophagus. No mediastinal or hilar lymphadenopathy. No acute fr actures. No pneumothorax. There is mild central bronchial wall thickening. Linear scarlike density no wally within the lingula. Otherwise, no focal lung consolidations to suggest a pneumonia. No evidence f or pulmonary edema. Calcified granuloma within the right upper lobe. Right basilar linear density fav ors subsegmental atelectasis or scarring. Focal opacified distal bronchus within the superior segment of the right lower lobe medially best seen on image 119. This is age indeterminate but likely chroni c. IMPRESSION: 1. No evidence for a pulmonary embolus. 2. A 4.8 cm ascending thoracic aortic aneurysm. No evidence for an aortic dissection. 3. No focal lung consolidations to suggest a pneumonia. 4. Focal opacified distal bronchus within the superior segment of the right lower lobe. This is age i ndeterminate but likely chronic. ACT 112: Negative or not required by law. Electronically signed by: Gary Richards M.D. 06/22/2023 11:30 AM
--- NOTE | 2023-06-22 11:51 | History & Physical Report ---
Date of Service June 22, 2023 Assessment & Plan (1) Influenza: Plan: SOB at rest, hypoxia, and productive cough that started on Tuesday 06/20 Influenza A H1 2009 + on arrival Droplet isolation precautions in place No leukocytosis; mildly febrile at 37.9 C on arrival Procalcitonin WNL PT/INR WNL EKG NSR at 81 bpm; QTc 415 CXR revealed no focal consolidation suggesting PNA, but noted left midlung zone scarring Chest CTA revealed no evidence of pulmonary embolism or PNA, but noted focal opacified distal bronchus within the superior segment of the RLL (chronic) Continue oxygen supplementation as needed to maintain SpO2 >94% Promote pulmonary hygiene with incentive spirometry and flutter valve Continue Tamiflu 75 mg p.o. BID Acetaminophen as needed for fever/pain Zofran as needed for nausea/vomiting DuoNeb 3 mL as needed for wheezing Guaifenesin 600 mg p.o. q12h for cough A.m. CBC, BMP (2) Thoracic ascending aortic aneurysm: Plan: Chest CTA revealed 4.8 cm ascending thoracic aortic aneurysm, with no evidence of dissection Patient was informed of this finding Clinically, patient denies CP, pleuritic CP, or chest palpitations Recommend outpatient echocardiogram and follow-up/monitoring with vascular (3) Dyslipidemia: Plan: Continue atorvastatin (4) Depression with anxiety: Plan: Continue bupropion, buspirone (5) Asthma: Plan: DuoNeb (as above) as needed for wheezing Plan Disposition: Admit to [facility] telemetry Full code Regular diet VTE PPx: Lovenox 40 mg SQ q24h History of Present Illness Chief Complaint: Respiratory problems Primary Care Provider: Elizabeth Angel MD Ye is a 68-year-old male with PMH of asthma, depression with anxiety, dyslipidemia, sleep disturbances, and gout. He presented for SOB at rest, hypoxia, and productive cough since Thursday 04/19. He was reportedly 88% SpO2 on RA on arrival. Patient endorses SOB at rest and with exertion, which is worse when lying flat. He has been taking Advil at home for chills and b odyaches (2 tablets in the morning, 2 tablets in the afternoon). [facility] and was started on a course of Augmentin. Patient was recently sick with pneumonia in early May 2023, and was prescribed a course of doxycycline/azithromycin. He then started to feel better, but a productive cough developed again 2 days ago. Patient does not use supplemental oxygen at home. He did not take his regular morning medications today; no recent change medications. He reports that he received his influenza, COVID, and pneumonia shots this past year. He denies smoking, tobacco use. He endorses alcohol use, but nothing within the last few days; regularly he drinks 23 drinks per night; hard alcohol. No history of alcohol withdrawal or seizures. He is mildly febrile at 37.9 C at time of admission; SpO2 94% on 2L NC. ED course: Tamiflu 75 mg p.o. DuoNeb 3 mL Acetaminophen 1000 mg p.o. ROS: Patient endorses chills, body aches, headache, SOB at rest, and productive cough (clear sputum; tinged yellow). Patient denies fever, dizzy, lightheadedness, chest pain, chest palpitations, hemoptysis, pleuritic CP, abdominal pain, N/V/D, dysuria, burning with urination, or numbness/tingling/pain/redness in the legs or arms. No PMHx of [place], stroke, cardiac issues, PE/DVT, COPD, or diabetes. Allergies Allergy/AdvReac Type Severity Reaction Status Date / Time cat dander Allergy Mild EYES Verified 04/28/22 10:29 RED,WHEEZING No Known Drug Allergies Allergy Unknown NONE Verified 04/28/22 10:29 Home Medications Medication Instructions Recorded Confirmed Type trazodone 50 mg tablet 100 mg PO HS PRN Insomnia 01/16/19 06/22/23 History albuterol sulfate 90 mcg/actuation 2 puff inhalation Q4H PRN 02/04/23 06/22/23 Rx aerosol inhaler shortness of breath or wheezing #8.5 grams atorvastatin 20 mg tablet 20 mg PO DAILY #90 tabs 05/24/23 06/22/23 Rx benzonatate 200 mg capsule 200 mg PO TID PRN cough #30 caps 05/26/23 06/22/23 Rx amoxicillin 875 mg-potassium 1 tab PO BID 06/22/23 06/22/23 History clavulanate 125 mg tablet bupropion HCl 200 mg tablet,12 hr 200 mg PO QAM 06/22/23 06/22/23 History sustained-release buspirone 30 mg tablet 30 mg PO QAM 06/22/23 06/22/23 History cholecalciferol (vitamin D3) 1,250 0 unit PO WK 06/22/23 06/22/23 History mcg (50,000 unit) capsule cholecalciferol (vitamin D3) 50 0 mcg PO DAILY 06/22/23 06/22/23 History mcg (2,000 unit) capsule mecobalamin (vitamin B12) 1,000 0 mcg PO DAILY 06/22/23 06/22/23 History mcg chewable tablet Past Med/Surg History Medical History (Updated 06/22/23 @ 11:48 by Gary Guadalupe PA-C) Thoracic ascending aortic aneurysm COVID Anxiety Asthma childhood; inhaler prn Vocal cord polyp hoarseness Surgical History History of colonoscopy History of right inguinal hernia repair History of tooth extraction History of bilateral cataract extraction S/P Achilles tendon repair right Family History Father Allergic rhinitis Asthma Family/Other Allergic rhinitis Mother Cervical cancer Other No family history of adverse response to anesthesia Denies family history of Ovarian cancer Prostate cancer Myocardial infarction Breast cancer Lung cancer Colorectal cancer Stroke Social History Smoking Status: Never smoker Second Hand Exposure: Yes (father smoked); Do You Dip or Chew Tobacco: No; Hx Alcohol Use: Yes Alcohol type: beer, wine and hard liquor Alcohol Intake Frequency: 4 or More x per/Week Hx Substance Use: No Preferred Language: [place] Communication Ability: Effective Visual Impairment: No Limitations Hearing Ability: Normal Commodity Analyst Required: No Beliefs That Will Affect Care: None marital status: Current Living Situation: Spouse current occupational status: employed Feels Safe at Home: Yes Diet: regular Dental Care, Regularly: Yes Physical Activity Frequency: Daily Physical Activity Frequency Comment: lifting weight 3 times a week, Walking everyday 1-2 mile a day Seatbelt Use: always Sunscreen Use: No Assistive Devices: Glasses Review of Systems Review of Systems: See HPI above Physical Exam Physical Exam: General: no acute distress; pleasant affect; non-toxic appearing; well- nourished; cooperative; 94% SpO2 on 2L NC HEENT: normocephalic, atraumatic; no scleral icterus; PERRLA; moist mucus membrane; vision and hearing grossly intact Neck: supple; mild hoarseness; no lymphadenopathy; trachea midline Skin: warm, dry without signs of tenting; no cyanosis; no rashes, bruising, lesions, or erythema noted CV: chest wall NTP; RRR; S1/S2 normal; no murmurs/rubs/gallops; pulses intact and symmetric at radial, DP, and PT Lungs: Productive cough; minimal respiratory distress; symmetrical chest wall expansion; diminished breath sounds across all lung mayo w/o adventitious sounds; no wheezing ABD: Soft, NTP; BS present; no rebound/guarding; no distention MSK: no tics or fasciculations; no edema noted in the LEs b/l, nonerythematous Neuro: A&Ox3; normal mood and affect; fluent speech; sensation grossly intact in the LEs b/l Results & Data Results & Data Vital Signs (Past 12 Hours) Vital Signs Temp Pulse Pulse Resp BP BP Pulse Ox 06/22/23 11:24 70 16 117/71 94 06/22/23 09:47 76 06/22/23 09:29 77 18 91 06/22/23 09:29 37.9 C H 76 18 120/69 91 06/22/23 09:29 91 06/22/23 07:57 38.4 C H 84 18 150/91 H 92 O2 Del Method O2 Flow Rate 06/22/23 11:24 Nasal Cannula 2 06/22/23 09:47 06/22/23 09:29 Room Air 06/22/23 09:29 Room Air 06/22/23 09:29 Room Air 06/22/23 07:57 Room Air Laboratory Results Abnormal lab results 06/22/23 06/22/23 Range/Units 08:49 09:30 RBC 4.14 L (4.70-6.10) M/uL Hgb 13.2 L (14.0-18.0) g/dl Hct 41.1 L (42.0-52.0) % MPV 9.3 L (9.4-12.4) fL Lymph # (Auto) 0.20 L (1.20-3.40) K/uL [place] # (Auto) 0.63 H (0.11-0.59) K/uL Sodium 135 L (136-145) mmol/L BUN/Creatinine Ratio 7.9 L (10-20) Glucose 125 H (70-99(Fasting)) mg/dl Nasal Influ A H1 2008 PCR DETECTED A (NotDetected) Diagnostic Findings Chest X-Ray 06/22/23 08:01 XR chest 1V not portable HISTORY: Chest pain, nonspecific COMPARISON: Chest 05/26/2023. FINDINGS: No pneumothorax. No pleural effusions. The heart is normal in size. Linear scarlike density within the left midlung zone is again noted. No new focal lung consolidations to suggest a pneumonia. No evidence for pulmonary edema. Tortuous versus ectatic ascending thoracic aorta. This has progressed in the interval could represent an underlying ascending thoracic aortic aneurysm. IMPRESSION: 1. No focal lung consolidations to suggest a pneumonia. 2. Left midlung zone scarring persists. 3. Tortuous versus ectatic ascending thoracic aorta. This has progressed in the interval and could represent an underlying ascending thoracic aortic aneurysm. Therefore, follow-up nonemergent echocardiogram recommended for further evaluation. ACT 112: Negative or not required by law. Electronically signed by: Gary Richards M.D. 06/22/2023 8:40 AM Chest CTA 06/22/23 10:04 CHEST CTA for PULMONARY ARTERIES CT DOSE: 742.13 mGy.cm HISTORY: Shortness of breath. Atypical chest pain. TECHNIQUE: Multiaxial CT images of the chest were performed following the intravenous administration of contrast to evaluate the pulmonary arteries. 3D/Maximal intensity projection images were also obtained. Sagittal and coronal reformations were also reviewed. A dose lowering technique was utilized adhering to the principles of ALARA. COMPARISON STUDY: None. FINDINGS: There is confirmation of a 4.8 cm ascending thoracic aortic aneurysm. No evidence for an aortic dissection. The heart is normal in size. No pleural or pericardial effusions. No filling defects within the pulmonary arteries to suggest a pulmonary embolus. Limited views of the upper abdomen demonstrate a normal liver, spleen, and adrenal glands. The thyroid gland enhances normally. There is a tiny hiatus hernia. Otherwise, normal esophagus. No mediastinal or hilar lymphadenopathy. No acute fractures. No pneumothorax. There is mild central bronchial wall thickening. Linear scarlike density noted within the lingula. Otherwise, no focal lung consolidations to suggest a pneumonia. No evidence for pulmonary edema. Calcified granuloma within the right upper lobe. Right basilar linear density favors subsegmental atelectasis or scarring. Focal opacified distal bronchus within the superior segment of the right lower lobe medially best seen on image 119. This is age indeterminate but likely chronic. IMPRESSION: 1. No evidence for a pulmonary embolus. 2. A 4.8 cm ascending thoracic aortic aneurysm. No evidence for an aortic dissection. 3. No focal lung consolidations to suggest a pneumonia. 4. Focal opacified distal bronchus within the superior segment of the right lower lobe. This is age indeterminate but likely chronic. ACT 112: Negative or not required by law. Electronically signed by: Gary Richards M.D. 06/22/2023 11:30 AM Code Status & VTE Plan Code Status Full code VTE Prophylaxis Plan VTE Prophylaxis will be ordered: Yes PG Care Time/CCT Total # of Minutes Spent Total Time Spent with Patient: Total time spent is greater than 50% in coordination of care (as documented) at patient's floor/unit and/or counseling patient: C[place] [address] INT INP/OBS CARE 1/40MIN Patient Type Established History Detailed Exam Detailed Medical Decision Making Low Complexity Diagnoses Influenza J11.1 Thoracic ascending aortic aneurysm I71.21 Dyslipidemia E78.5 Depression with anxiety F41.8 Asthma J45.909
[2023-06-22] MEDS: OSELTAMIVIR PHOSPHATE 75 MG CAP PO STA (12:20)
[2023-06-22] MEDS ORDERED: BENZONATATE 100 MG CAPSULE PO PRN (14:59)
[2023-06-22] MEDS ORDERED: ONDANSETRON INJ 2 MG/ML 2 ML VIAL IV PRN (14:59)
[2023-06-22] MEDS ORDERED: ALBUTEROL HFA 8 GM INHALER INH PRN (14:59)
[2023-06-22] MEDS ORDERED: ALBUT/IPRATROP 3MG/0.5MG NEB 3 ML VIAL NEB PRN (14:59)
[2023-06-22] MEDS: busPIRone 15 MG TAB PO SCH (17:43)
[2023-06-22] MEDS: buPROPion SR 100 MG TABCR PO SCH (17:43)
[2023-06-22] MEDS: ACETAMINOPHEN 325 MG TAB PO PRN (17:45)
[2023-06-22] MEDS: MAGNESIUM SULFATE / D5W 1 GM/100 ML BAG IV SCH (17:48)
[2023-06-22] MEDS: ENOXAPARIN INJ 40 MG/0.4 ML SYR SQ SCH (19:51)
[2023-06-22] MEDS: guaiFENesin 600 MG TABCR PO SCH (20:52)
[2023-06-22] MEDS: traZODone HCL 100 MG TAB PO PRN (20:53)
--- NOTE | 2023-06-23 06:02 | Electrocardiogram Report ---
Test Reason : Blood Pressure : / mmHG Vent. Rate : 081 BPM Atrial Rate : 081 BPM P-R Int : 168 ms QRS Dur : 084 ms QT Int : 358 ms P-R-T Axes : 093 061 026 degrees QTc Int : 415 ms Normal sinus rhythm Nonspecific ST abnormality Abnormal ECG When compared with ECG of 19-MAY-2016 11:09, T wave amplitude has decreased in Anterolateral leads Confirmed by Cabrera Roque ([id number]) on 06/23/2023 6:01:42 AM Referred By: REFERRED SELF Confirmed By:Cabrera Roque
[2023-06-23 06:30] LABS: Basophils # (auto) 0.01 K/uL (0.00-0.20); Basophils % (auto) 0.3 %; Eosinophils # (auto) 0.01 K/uL (0.00-0.50); Eosinophils % (auto) 0.3 %; Hematocrit (blood only) 37.4 % (42.0-52.0); Hemoglobin 12.3 g/dl (14.0-18.0); Immature Granulocytes # (auto) 0.01 K/uL (0.01-0.20); Immature Granulocytes % (auto) 0.3 %; Lymphocytes # (auto) 0.56 K/uL (1.20-3.40); Lymphocytes % (auto) 16.9 %; Mean Corpuscular Hemoglobin 32.3 pg (25.0-34.0); Mean Corpuscular Hgb Conc 32.9 g/dL (32.0-36.0); Mean Corpuscular Volume 98.2 fL (80.0-100.0); Mean Platelet Volume 9.1 fL (9.4-12.4); Monocytes # (auto) 0.58 K/uL (0.11-0.59); Monocytes % (auto) 17.5 %; Neutrophils # (auto) 2.14 K/uL (1.40-6.50); Neutrophils % (auto) 64.7 %; Platelet Count 122 K/uL (130-400); RDW Coefficient of Variation 12.3 % (11.5-14.5); RDW Standard Deviation 44.7 fL (36.4-46.3); Red Blood Count 3.81 M/uL (4.70-6.10); White Blood Count 3.31 K/ul (4.8-10.8)
[2023-06-23 06:56] LABS: BUN Creatinine Ratio 7.8 (10-20); Calcium 8.5 mg/dl (8.6-10.3); Creatinine Clr Calc Pharmacy 81.7 ml/min; Est GFR (African American) 86.5 ml/min; Est GFR (Non-African American) 74.6 ml/min; Magnesium 2.2 mg/dl (1.7-2.4); Potassium 3.9 mmol/L (3.5-5.1)
[2023-06-23] MEDS: ATORVASTATIN 20 MG TAB PO SCH (09:51)
[2023-06-23] MEDS: OSELTAMIVIR PHOSPHATE 75 MG CAP PO SCH (09:51)
--- NOTE | 2023-06-23 12:08 | Discharge Summary ---
Date of Service June 23, 2023 Admission HPI Per Admitting Provider Ye is a 68-year-old male with PMH of asthma, depression with anxiety, dyslipidemia, sleep disturbances, and gout. He presented for SOB at rest, hypoxia, and productive cough since Thursday 04/19. He was reportedly 88% SpO2 on RA on arrival. Patient endorses SOB at rest and with exertion, which is worse when lying flat. He has been taking Advil at home for chills and bodyaches (2 tablets in the morning, 2 tablets in the afternoon). [facility] and was started on a course of Augmentin. Patient was recently sick with pneumonia in early May 2023, and was prescribed a course of doxycycline/azithromycin. He then started to feel better, but a productive cough developed again 2 days ago. Patient does not use supplemental oxygen at home. He did not take his regular morning medications today; no recent change medications. He reports that he received his influenza, COVID, and pneumonia shots this past year. He denies smoking, tobacco use. He endorses alcohol use, but nothing within the last few days; regularly he drinks 23 drinks per night; hard alcohol. No history of alcohol withdrawal or seizures. He is mildly febrile at 37.9 C at time of admission; SpO2 94% on 2L NC. ED course: Tamiflu 75 mg p.o. DuoNeb 3 mL Acetaminophen 1000 mg p.o. ROS: Patient endorses chills, body aches, headache, SOB at rest, and productive cough (clear sputum; tinged yellow). Patient denies fever, dizzy, lightheadedness, chest pain, chest palpitations, hemoptysis, pleuritic CP, abdominal pain, N/V/D, dysuria, burning with urination, or numbness/tingling/pain/redness in the legs or arms. No PMHx of [place], stroke, cardiac issues, PE/DVT, COPD, or diabetes. Principal Diagnosis Influenza, thoracic ascending aneurysm Discharge Exam The patient is awake, alert and oriented 3, well developed and well nourished, normocephalic and atraumatic, lying in bed and in no acute distress. HEENT--PERRL, EOMI, mucous membranes and oropharynx mildly dry Neck--supple. No JVD. No bruits. Thyroid normal, trachea midline, no adenopathy. Heart--normal S1 and S2. No murmurs, rubs or gallops. Lungs--clear bilaterally, no respiratory distress, no accessory muscle use. Abdomen--normal bowel sounds and soft. Mild epigastric and left sided abdominal pain Extremities--no cyanosis or clubbing. No edema. Dermatologic--normal skin turgor, normal color, no abnormal lymph nodes, no rash. Neurologic--cranial nerves II through XII grossly intact. Rheumatologic--normal range of motion. Psychiatric--normal affect. Discharge Data Allergies Allergy/AdvReac Type Severity Reaction Status Date / Time cat dander Allergy Mild EYES Verified 04/28/22 10:29 RED,WHEEZING No Known Drug Allergies Allergy Unknown NONE Verified 04/28/22 10:29 Consultations 06/22/23 11:53 ED Decision to Admit Stat Ordered Studies 06/22/23 10:04 CT angio chest PE protocol Stat Hospital Course (1) Influenza: SOB at rest, hypoxia, and productive cough that started on Tuesday 06/20 Influenza A H1 2008 + on arrival Droplet isolation precautions in place No leukocytosis; mildly febrile at 37.9 C on arrival Procalcitonin WNL PT/INR WNL EKG NSR at 81 bpm; QTc 415 CXR revealed no focal consolidation suggesting PNA, but noted left midlung zone scarring Chest CTA revealed no evidence of pulmonary embolism or PNA, but noted focal opacified distal bronchus within the superior segment of the RLL (chronic) Continue oxygen supplementation as needed to maintain SpO2 >94% Promote pulmonary hygiene with incentive spirometry and flutter valve Continue Tamiflu 75 mg p.o. BID Acetaminophen as needed for fever/pain Zofran as needed for nausea/vomiting DuoNeb 3 mL as needed for wheezing Guaifenesin 600 mg p.o. q12h for cough A.m. CBC, BMP (2) Thoracic ascending aortic aneurysm: Chest CTA revealed 4.8 cm ascending thoracic aortic aneurysm, with no evidence of dissection Patient was informed of this finding Clinically, patient denies CP, pleuritic CP, or chest palpitations Recommend outpatient echocardiogram and follow-up/monitoring with vascular (3) Dyslipidemia: Continue atorvastatin (4) Depression with anxiety: Continue bupropion, buspirone (5) Asthma: DuoNeb (as above) as needed for wheezing (6) Pancytopenia: Probably from alcohol abuse Outpatient follow-up Plan Discharge home Total Time Total Time Spent Total Time Spent (In Minutes): 35 Discharge Plan Discharge Items Patient Disposition: Home - Self-Care Reason For Visit: SOB, INFLUENZA Discharge Diagnosis: Influenza, hypoxia Activity: Resume your previous activity Non-emergency contact: Primary Care Provider Call non-emergency contact if: you have any medication questions Follow-up/Referrals: Elizabeth Angel MD [Primary Care Provider] - 06/30/23 1:30 pm Diet: Regular Addtl Attending Provider Instructions: please make appointment for your PCP, also inform your PCP about show 4.8 cm thoracic aortic aneurysm so she can follow-up Pending Studies at Discharge: No Stand-Alone Forms: My [employer], Smoking Cessation Medications and DC Order Prescriptions: New oseltamivir [Tamiflu] 75 mg Capsule 75 mg PO BID 4 Days Qty: 8 0RF guaifenesin [Mucinex] 600 mg Tablet Extended Release 12hr 600 mg PO Q12 5 Days Qty: 10 0RF Continued albuterol sulfate 90 mcg/actuation HFA aerosol inhaler 2 puff inhalation Q4H PRN (Reason: shortness of breath or wheezing) Qty: 8.5 5RF atorvastatin 20 mg tablet 20 mg PO DAILY Qty: 90 3RF trazodone 50 mg tablet 100 mg PO HS PRN (Reason: Insomnia) benzonatate 200 mg capsule 200 mg PO TID PRN (Reason: cough) Qty: 30 0RF buspirone 30 mg tablet 30 mg PO QAM bupropion HCl 200 mg tablet sustained-release 12 hr 200 mg PO QAM cholecalciferol (vitamin D3) 1,250 mcg (50,000 unit) capsule 0 unit PO WK Rx Instructions: Unable to verify medication w/ pharmacy at this date/time. Original directions are 50,000 once weekly. TAKE WEEKLY WITH HEAVIEST MEAL OF THE DAY cholecalciferol (vitamin D3) 50 mcg (2,000 unit) capsule 0 mcg PO DAILY Rx Instructions: Unable to verify OTC medications with patient/family at this date/time. mecobalamin (vitamin B12) 1,000 mcg tablet,chewable 0 mcg PO DAILY Rx Instructions: Unable to verify OTC medications with patient/family at this date/time. Discontinued amoxicillin-pot clavulanate 875-125 mg tablet 1 tab PO BID Rx Instructions: Start Date 06/21/23 - End Date 06/28/23 Discharge Orders: Discharge Order (Routine); Ordered 06/23/23 Ordered By: Olimpia Selby/Other Patient Handouts: Guaifenesin Extended Release Oral Tablet, Oseltamivir Oral Capsule Admission Data Admit Date/Time: 06/22/23 12:23 Attending Provider: Olimpia Shaw Admit Provider: Rod Turcios Primary Care Provider: Elizabeth Angel V. Other Providers: Rod Turcios Other Interventions: Discharge Summary Assessment (RN) Last Done: 06/23/23 10:58 Coding Level of Care Code 67504 INP/OBS DISCH >30 MIN Diagnoses Influenza J11.1 Thoracic ascending aortic aneurysm I71.21 Dyslipidemia E78.5 Depression with anxiety F41.8 Asthma J45.909 Pancytopenia D61.818 Time Spent (min) 35
== END 2023-06-23 12:50 | disposition home or self-care (01) ==
LOC: ED 07:50 → SUATTDRO 12:23 → INTOOBSV 12:23 → EDINP 12:23 → 2W 15:00